=== PATIENT | female | born 1985 | race Caucasian/White ===

== ENCOUNTER → 2019-05-24 | Outpatient (CLI) | payer BC ==
--- NOTE | 2019-05-24 10:02 | Diagnostic Imaging Report ---
PROCEDURE: US abdomen complete. TECHNIQUE: Multiple real-time grayscale images were obtained over the abdomen in various projections. INDICATION: Epigastric pain. FINDINGS: The liver is normal in size at 16.2 cm. No discrete liver mass is identified. Portal vein is patent and shows normal direction of flow. Gallbladder is without stones or sludge. No wall thickening or biliary ductal dilatation is identified. Pancreas unremarkable. Spleen is normal in size at 10.1 cm. Aorta is non-aneurysmal. IVC is patent. Right and left kidneys are without calculi or hydronephrosis. There is no ascites. IMPRESSION: Unremarkable abdominal ultrasound. Dictated by: Dictated on workstation # [id number]
== END ==
LOC: RAD 08:39
PROVIDERS: ATTEND Pediatrics
DX: R10.13 Epigastric pain (principal)
CPT/HCPCS: 76700